=== PATIENT | female | born 1995 | race African-American/Black ===

== ENCOUNTER → 2020-01-26 | Emergency (ER) | payer MEDICAID ==
[~2020-01-26] VITALS: Ht 147.3 cm; Wt 63.5 kg
[~2020-01-26] MED LIST: HYDROcodone-ACET 10/325MG TAB PO ONE
[2020-01-26 22:48] LABS: Urine Bacteria FEW /hpf (None Seen); Urine Blood 1+ /uL (Negative); Urine Mucus FEW (None Seen); Urine Specific Gravity 1.035 (1.001-1.035); Urine WBC 10 /hpf (0 - 5)
[2020-01-27 01:15] VITALS: BP 127/89
== END | disposition home or self-care (01) ==
LOC: ER 22:07
DX: M62.838 Other muscle spasm (principal)
CPT/HCPCS: 70450; 71101; 72100; 72125; 81001